=== PATIENT | male | born 1980 | race Caucasian/White ===

== ENCOUNTER 2018-12-26 10:49 | Emergency (ER) | payer OTHER ==
[2018-12-26 11:13] VITALS: RESP 16; TEMP 97.6; O2SAT 97
[2018-12-26] MEDS ORDERED: SODIUM CHLORIDE 0.9% 1000ML 1,000 ML IV SCH (11:30)
[2018-12-26 11:37] LABS: BASOPHILS % (AUTO) 0 % (0-3); EOSINOPHILS % (AUTO) 1 % (0-9); HEMATOCRIT 49 % (39-53); HEMOGLOBIN 15.8 gm/dl (13.5-17.7); LYMPHOCYTES % (AUTO) 13.9 % (10-50); MEAN CORPUSCULAR HEMOGLOBIN 28.6 pg (27.0-32.0); MEAN CORPUSCULAR HGB CONC 32.2 gm/dl (32.0-36.0); MEAN CORPUSCULAR VOLUME 89 fL (80-100); MONOCYTES % (AUTO) 7.4 % (0-12); NEUTROPHILS % (AUTO) 77.3 % (37-80)
[2018-12-26 11:39] VITALS: BP 112/68; PULSE 72
[2018-12-26 11:41] LABS: LACTIC ACID < 0.8 mMol/L (0.0-2.0)
[2018-12-26 11:51] LABS: BLOOD UREA NITROGEN 17 mg/dl (7-18); CALCIUM 8.5 mg/dl (8.5-10.1); CHLORIDE 103 mMol/L (98-107); CREATININE 1.03 mg/dl (0.80-1.30); GLUCOSE 114 mg/dl (74-106); SODIUM 137 mMol/L (136-145)
== END 2018-12-26 12:43 | disposition home or self-care (01) | DRG 392 ==
LOC: ED 10:49
DX: R10.9 Unspecified abdominal pain (principal); R11.2 Nausea with vomiting, unspecified; R19.7 Diarrhea, unspecified
CPT/HCPCS: 80048; 85025; 96365; 99282; 99283